=== PATIENT | male | born 1990 | race Caucasian/White ===

== ENCOUNTER 2024-05-12 16:42 | Emergency (ER) | payer OTHER, SELFPAY ==
--- NOTE | ~2024-05-12 | XR_ITS ---
CLINICAL HISTORY: ? ingestion of foreign body (battery) 1 view chest x-ray Comparison: None Findings: Lungs are hypoinflated. Cardiac silhouette is within normal limits given the degree of inflation. Streaky central interstitial prominence is identified bilaterally. Area of rounded lucency projects over the lower aspect of the central chest measuring 7.8 cm in round diameter. No dense area of consolidation. No pleural effusion or pneumothorax. Air-filled loops of bowel are seen within the mid to upper abdomen. Please refer to the patient's dedicated abdominal radiograph from same date for further details. IMPRESSION: 1. Hypoinflation without acute infiltrate. Interstitial prominence centrally is likely related to bronchovascular crowding. 2. Rounded lucency over the lower aspect of the chest is likely related to hiatal hernia. CT abdomen and pelvis could further evaluate. This document has been electronically signed by: Herberth Hart MD on 05/12/2024 17:57:09
--- NOTE | ~2024-05-12 | XR_ITS ---
CLINICAL HISTORY: ? foreign body ingestion (battery) Exam: AP abdominal radiograph. Comparison: Chest x-ray from same date. Findings: The upper abdomen is not included in the field of view on this abdominal radiograph. It is included in the field of view of the patient's accompanying chest x-ray. On the patient's chest x-ray, there is a rounded lucency along the inferior aspect of the chest centrally suggesting a hiatal hernia. The abdominal radiograph demonstrates a large amount of stool throughout the colon. This appears to be desiccated stool. No dilated small bowel is identified. No indirect evidence for free air seen on this supine exam. Impression: 1. Likely hiatal hernia. Again, CT abdomen and pelvis with intravenous contrast could further evaluate. 2. Large amount of desiccated stool throughout the colon without findings of obstruction. This document has been electronically signed by: Herberth Hart MD on 05/12/2024 17:58:31
[2024-05-12 17:01] VITALS: BP 122/75; BP 122/84; PULSE 84; RESP 18; TEMP 36.2; BMI 27.4
[2024-05-12 17:58] VITALS: BP 145/88; PULSE 73; RESP 16; TEMP 36.1; O2SAT 99
--- NOTE | 2024-05-12 17:58 | ED_ITS ---
HPI - General Adult General Chief complaint: General Medical Stated complaint: from senior living, ?swallowed battery Time Seen by Provider: 05/12/24 17:58 History of Present Illness ED Provider: Carmencita EL narrative: The patient is a 33-year-old male with a history of developmental delay who lives at a senior living. He has a history of swallowing things. Apparently there was an electronic device, one of his toys, which seemed to be missing a AAA battery. There was concern that he might have swallowed it and so he was brought to the hospital for evaluation. There was no actual witnessing of any unusual ingestion. However he has swallowed things in the past. The patient apparently has bowel regimen medications on his regular medications. Related Data Allergies Allergy/AdvReac Type Severity Reaction Status Date / Time casein Allergy Unknown Verified 05/12/24 17:05 gluten Allergy Unknown Verified 05/12/24 17:05 metoclopramide [From Reglan] Allergy Unknown Verified 05/12/24 17:05 Review of Systems Review of Systems: Yes all other systems are reviewed and are negative [facility] Social History Social History Unable to assess alcohol history related to: Unable to respond Smoked in Last 30 Days: No Use of substances other than those prescribed or required for medical reasons: Unable to respond Advance Directives: No Advance Directives Information Provided: No Do you have a plan to hurt others: No Plan Physical Exam ED Vital Signs: Vital Signs - 24 hr 05/12/24 17:01 05/12/24 17:58 05/12/24 18:25 Temperature 97.2 F 96.9 F 96.9 F Pulse Rate 84 73 73 Respiratory Rate 18 16 16 Blood Pressure 122/84 145/88 H 145/88 H Pulse Oximetry 99 99 Oxygen Delivery Method Room Air Room Air BMI result Body Mass Index 27.4 Const Other: The patient is awake. He is nonverbal. I believe he is at his neurological baseline. He does not seem in distress. HENMT Other: Face is symmetrical. Mucous membranes are moist. Eyes General: appearance normal, both eyes and all related structures Resp Effort & Inspection: normal respiratory effort Auscultation: clear to auscultation bilaterally Cardio Rate: regular rate Rhythm: regular rhythm Heart sounds: S1 normal heart sound present and S2 normal heart sound present GI Other: Abdomen is soft and nontender Skin Other: Skin is dry and unremarkable Neuro Other: The patient is awake. He makes eye contact. He is nonverbal. I believe he is at his neurological baseline. Extrem Other: No peripheral edema Medical Decision Making Medical Decision Making MDM Narrative: The patient is a 33-year-old male with developmental delay and cognitive impairment with a history of swallowing things. Apparently a AAA battery from 1 of his toys was missing. Staff was concerned that he might have swallowed the battery. A chest x-ray and a KUB were done. No evidence of an ingested battery is seen on these studies. There is a fair amount of stool possibly consistent with constipation. The patient's mother and staff from his senior living or here. I reassured them that he does not seem to have swallowed a AAA battery. I have encouraged them to ensure that the patient is receiving his appropriate bowel regimen. Discharge Plan Discharge Clinical Impression: Constipation Patient Disposition: Home, Self-Care Additional Instructions: We do not see any batteries on the x-rays of his chest or his abdomen. He does have a fair amount of stool in his colon. Please make sure that he is receiving his bowel regimen medications. Stay in touch with your regular doctor for additional advice as needed. Return to the emergency room if worse. Referrals: Hector Kang MD [Primary Care Provider] - Interventions: ED Discharge Assessment Last Done: 05/12/24 18:25 Discharge Date/Time: 05/12/24 18:32 Print Language: Icelandic
[2024-05-12 18:25] VITALS: BP 145/88; PULSE 73; RESP 16; TEMP 36.1; O2SAT 99
== END 2024-05-12 18:32 | disposition home or self-care (01) ==
PROVIDERS: Emergency Provider Emergency Medicine; PCP Internal Medicine
DX: K59.00 Constipation, unspecified (principal); G31.84 Mild cognitive impairment of uncertain or unknown etiology; R10.2 Pelvic and perineal pain; R10.13 Epigastric pain
CPT/HCPCS: 71045; 74018; 99283; 99284

== ENCOUNTER → 2024-05-12 17:22 | Outpatient (BNV) | payer OTHER, SELFPAY | PROVIDERS: Emergency Provider Emergency Medicine; PCP Internal Medicine; Visit Provider Radiology Diagnostic Radiology | DX: J98.4 Other disorders of lung (principal); K56.41 Fecal impaction | CPT/HCPCS: 71045; 74018 ==